=== PATIENT | female | born 1965 | race Caucasian/White ===

== ENCOUNTER 2017-10-22 07:58 | Emergency (ER) | payer OTHER ==
[2017-10-22] MEDS: ALBUTEROL 0.5% (NEB) 2.5 MG/0.5 ML AMP INH (08:33)
[2017-10-22] MEDS: IPRATROPIUM (NEB) 0.5 MG/2.5 ML AMP INH (08:33)
[2017-10-22] MEDS: HYDROCODONE/APAP (10/325) TAB PO (09:07)
[2017-10-22] MEDS: AZITHROMYCIN 250 MG TAB PO (11:29)
== END 2017-10-22 11:56 | disposition home or self-care (01) ==
LOC: E/R 07:58
DX: J20.9 Acute bronchitis, unspecified (principal); I10 Essential (primary) hypertension; E66.9 Obesity, unspecified; E11.9 Type 2 diabetes mellitus without complications; Z68.44 Body mass index [BMI] 60.0-69.9, adult; Z79.84 Long term (current) use of oral hypoglycemic drugs
CPT/HCPCS: 71045; 94644; 99284-25

== ENCOUNTER 2018-01-03 04:52 | Emergency (ER) | payer OTHER ==
[2018-01-03] MEDS: HYDROCODONE/APAP (5/325) TAB PO (05:14)
[2018-01-03] MEDS: IBUPROFEN 800 MG TAB PO (05:14)
[2018-01-03] MEDS: HYDROmorphONE 2 MG/ML SYG IV ×2 (05:40→07:01)
[2018-01-03] MEDS: HYDROmorphONE 0.5 MG/0.5 ML SYG IV ×2 (07:29→08:50)
[2018-01-03 07:54] LABS: ADD MAN DIFF? NO
[2018-01-03 07:55] LABS: BASOPHIL # 0.1 10^3/ul (0.0-0.1); BASOPHILS % 0.8 % (0.0-2.0); EOSINOPHILS # 0.2 10^3/ul (0.0-0.5); EOSINOPHILS % 1.9 % (0.0-7.0); HEMOGLOBIN 12.2 g/dl (12.0-16.0); LYMPHOCYTES # 1.1 10^3/ul (0.8-2.9); LYMPHOCYTES % 12.6 % (15.0-51.0); MEAN CORPUSCULAR HEMOGLOBIN 29.6 pg (29.0-33.0); MEAN CORPUSCULAR HGB CONC 33.9 g/dl (32.0-37.0); MEAN CORPUSCULAR VOLUME 87.4 fl (82.0-101.0); MEAN PLATELET VOLUME 8.6 fl (7.4-10.4); MONOCYTE # 0.7 10^3/ul (0.3-0.9); MONOCYTES % 8.5 % (0.0-11.0); NEUTROPHIL # 6.5 10^3/ul (1.6-7.5); NEUTROPHILS % 75.7 % (39.0-77.0); PLATELET COUNT 296 10^3/UL (140-415); RED BLOOD COUNT 4.12 10^6/ul (4.20-5.40); RED CELL DISTRIBUTION WIDTH 13.2 % (11.5-14.5)
[2018-01-03 07:55] LABS: WHITE BLOOD COUNT 8.5 10^3/ul (4.8-10.8)
[2018-01-03 08:33] LABS: ANION GAP 15 (8-16); BLOOD UREA NITROGEN 12 mg/dl (7-20); CALCIUM 9.3 mg/dl (8.4-10.2); CARBON DIOXIDE 26 mmol/L (21-31); CHLORIDE 91 mmol/L (97-110); CREATININE 0.76 mg/dl (0.44-1.00); GLUCOSE 128 mg/dl (70-220); POTASSIUM 4.7 mmol/L (3.5-5.1); SODIUM 127 mmol/L (135-144)
[2018-01-03] MEDS: HYDROCODONE/APAP (10/325) TAB PO (11:46)
== END 2018-01-03 13:35 | disposition short-term general hospital (02) ==
LOC: E/R 04:52
DX: S43.001A Unspecified subluxation of right shoulder joint, initial encounter (principal); I10 Essential (primary) hypertension; E11.9 Type 2 diabetes mellitus without complications; E03.9 Hypothyroidism, unspecified; W01.0XXA Fall on same level from slipping, tripping and stumbling without subsequent striking against object, initial encounter; Y92.009 Unspecified place in unspecified non-institutional (private) residence as the place of occurrence of the external cause; Z79.84 Long term (current) use of oral hypoglycemic drugs
CPT/HCPCS: 73030; 73030-RT; 73200; 80048; 85025; 96374; 96376; 99285-25

== ENCOUNTER 2018-07-04 13:59 | Inpatient (IN) | payer OTHER ==
[2018-07-04] MEDS: DILTIAZEM 30 MG TAB PO (14:22)
[2018-07-04] MEDS: SOD CHLORIDE 0.9% 1,000 ML IV (14:23)
[2018-07-04] MEDS: DILTIAZEM 25 MG INJ IV (14:25)
[2018-07-04 14:48] LABS: INR 0.99; PARTIAL THROMBOPLASTIN TIME 29.2 Sec (23.0-35.0); PROTIME 13.2 Sec (11.9-14.9)
[2018-07-04 15:20] LABS: AMPHETAMINE/METHAMPHETAMINE Negative (NEGATIVE); BARBITURATES Negative (NEGATIVE); BENZODIAZEPINES Negative (NEGATIVE); CANNABINOIDS Negative (NEGATIVE); COCAINE Negative (NEGATIVE)
[2018-07-04 15:21] LABS: OPIATES Positive (NEGATIVE)
[2018-07-04 15:31] LABS: FREE T4 (FREE THYROXINE) 1.64 ng/dl (0.64-1.79)
[2018-07-04 15:45] LABS: ALANINE AMINOTRANSFERASE 49 IU/L (13-69); ALBUMIN 3.9 g/dl (3.3-4.9); ALBUMIN/GLOBULIN RATIO 1.39; ALKALINE PHOSPHATASE 78 IU/L (42-121); ANION GAP 18 (5-13); ASPARTATE AMINO TRANSFERASE 133 IU/L (15-46); BILIRUBIN,INDIRECT 0.4 mg/dl (0-1.1); BILIRUBIN,TOTAL 0.4 mg/dl (0.2-1.3); BLOOD UREA NITROGEN 10 mg/dl (7-20); CARBON DIOXIDE 21 mmol/L (21-31); CHLORIDE 61 mmol/L (97-110); CREATININE 0.57 mg/dl (0.44-1.00); Estimated GFR > 60 mL/min (>60); GLUCOSE 178 mg/dl (70-220); POTASSIUM 3.4 mmol/L (3.5-5.1); TOTAL PROTEIN 6.7 g/dl (6.1-8.1)
[2018-07-04 15:47] LABS: ETHANOL < 10.0 mg/dl (0-0); MEAN PLATELET VOLUME 9.4 fl (7.4-10.4); NUCLEATED RED BLOOD CELLS% 0.1 /100WBC (0.0-0.0); PLATELET COUNT 416 10^3/UL (140-415); RED BLOOD COUNT 4.42 10^6/ul (4.20-5.40); THYROID STIMULATING HORMONE 0.844 MIU/L (0.465-4.680); TROPONIN-I < 0.012 ng/ml (0.000-0.120)
[2018-07-04 15:47] LABS: WHITE BLOOD COUNT 19.5 10^3/ul (4.8-10.8)
[2018-07-04 15:48] LABS: POSITIVE DIFF @See below
[2018-07-04 15:49] LABS: ADD MAN DIFF? YES
[2018-07-04 15:50] LABS: SODIUM 100 mmol/L (135-144)
[2018-07-04 15:58] LABS: BAND NEUTROPHILS #M 1.9 10^3/ul (0.0-0.6); BAND NEUTROPHILS % (M) 10 % (0-4); LYMPHOCYTES #M 0.3 10^3/ul (0.8-2.9); LYMPHOCYTES % (M) 2 % (15-51); MONOCYTE #M 0.5 10^3/ul (0.3-0.9); MONOCYTES % (M) 3 % (0-11); PLATELET ESTIMATE NORMAL; REACTIVE LYMPHOCYTES #M 0.3 10^3/ul (0.0-0.0); REACTIVE LYMPHOCYTES% (M) 2 % (0-0); SEG NEUT #M 16.6 10^3/ul (1.6-7.5); SEGMENTED NEUTROPHILS (M) % 83 % (39-77); SMUDGE%M 16 % (0-0)
[2018-07-04 16:06] LABS: HEMATOCRIT 34.2 % (37.0-47.0); MEAN CORPUSCULAR HEMOGLOBIN 29.4 pg (29.0-33.0); MEAN CORPUSCULAR VOLUME 77.4 fl (82.0-101.0)
[2018-07-04 16:07] LABS: RED CELL DISTRIBUTION WIDTH 12.3 % (11.5-14.5)
[2018-07-04] MEDS: MAGNESIUM SULFATE 2 GM/50 ML 50 ML IVPB (16:19)
[2018-07-04] MEDS: POTASSIUM CHLORIDE (SR) 20 MEQ TAB PO (18:32)
[2018-07-04] MEDS ORDERED: HYDROCODONE/APAP (5/325) TAB PO (19:00)
[2018-07-04] MEDS ORDERED: NACL 0.9% 3 ML SYG IV (19:00)
[2018-07-04] MEDS ORDERED: DOCUSATE SODIUM 100 MG CAP PO (19:00)
[2018-07-04] MEDS ORDERED: hydrALAzine 20 MG INJ IV (19:00)
[2018-07-04] MEDS ORDERED: NITROGLYCERIN (SL) 0.4 MG TAB SL (19:00)
[2018-07-04] MEDS ORDERED: ONDANSETRON 4 MG INJ IV (19:00)
[2018-07-04] MEDS ORDERED: MAGNESIUM HYDROXIDE 30ML CUP PO (19:00)
[2018-07-04] MEDS ORDERED: ALBUTEROL/IPRATROPIUM (NEB) 3 ML AMP HHN (19:00)
[2018-07-04] MEDS ORDERED: morphine 2 MG INJ IV (19:00)
[2018-07-04 19:27] LABS: HEMOGLOBIN A1C 6.1 % (0-5.9)
[2018-07-04 19:35] LABS: ANION GAP 18 (5-13); BLOOD UREA NITROGEN 11 mg/dl (7-20); CALCIUM 8.3 mg/dl (8.4-10.2); CARBON DIOXIDE 22 mmol/L (21-31); CHLORIDE 59 mmol/L (97-110); CREATININE 0.55 mg/dl (0.44-1.00); Estimated GFR > 60 mL/min (>60); GLUCOSE 130 mg/dl (70-220); POTASSIUM 3.3 mmol/L (3.5-5.1)
[2018-07-04 19:47] LABS: SODIUM 99 mmol/L (135-144)
[2018-07-04 20:15] LABS: URIC ACID 3.1 mg/dl (3.1-7.9)
[2018-07-04] MEDS: INSULIN ASPART [NOVOLOG] 3 ML PEN SC (20:57)
[2018-07-04] MEDS: RANITIDINE 150 MG TAB PO (21:02)
[2018-07-04 21:18] LABS: OSMOLALITY 203 mOsm/kg (280-295)
[2018-07-04] MEDS: NACL 3% 500 ML IV (21:18)
[2018-07-04 21:31] LABS: ANION GAP 19 (5-13); BLOOD UREA NITROGEN 10 mg/dl (7-20); CALCIUM 8.3 mg/dl (8.4-10.2); CARBON DIOXIDE 21 mmol/L (21-31); CHLORIDE 61 mmol/L (97-110); CREATININE 0.51 mg/dl (0.44-1.00); Estimated GFR > 60 mL/min (>60); GLUCOSE 119 mg/dl (70-220); POTASSIUM 3.3 mmol/L (3.5-5.1)
[2018-07-04 21:40] LABS: SODIUM 101 mmol/L (135-144)
[2018-07-04 22:01] LABS: TROPONIN-I < 0.012 ng/ml (0.000-0.120)
[2018-07-04 22:07] LABS: CK INDEX 2.7; CREATINE KINASE 4624 IU/L (23-200)
[2018-07-04 22:51] LABS: ANION GAP 18 (5-13); BLOOD UREA NITROGEN 10 mg/dl (7-20); CALCIUM 8.2 mg/dl (8.4-10.2); CARBON DIOXIDE 23 mmol/L (21-31); CHLORIDE 61 mmol/L (97-110); CREATININE 0.56 mg/dl (0.44-1.00); Estimated GFR > 60 mL/min (>60); GLUCOSE 107 mg/dl (70-220); POTASSIUM 3.3 mmol/L (3.5-5.1)
[2018-07-04 22:55] LABS: SODIUM 102 mmol/L (135-144)
[2018-07-04] MEDS: HYDROCODONE/APAP (5/325) TAB PO (23:23)
[2018-07-05 00:01] LABS: ADD UMIC YES; UR ASCORBIC ACID NEGATIVE (NEGATIVE); UR BILIRUBIN (Dip) NEGATIVE (NEGATIVE); UR BLOOD (Dip) 2+ mg/dL (NEGATIVE); UR CLARITY CLEAR (CLEAR); UR COLOR YELLOW (YELLOW); UR GLUCOSE (Dip) NEGATIVE (NEGATIVE); UR KETONES (Dip) 1+ mg/dL (NEGATIVE); UR LEUKOCYTE ESTERASE (Dip) NEGATIVE Leu/ul (NEGATIVE); UR NITRITE (Dip) NEGATIVE (NEGATIVE); UR RBC 1 /HPF (0-5); UR SPECIFIC GRAVITY (Dip) 1.014 (1.003-1.030); UR TOTAL PROTEIN (Dip) 3+ mg/dl (NEGATIVE); UR UROBILINOGEN (Dip) NEGATIVE (NEGATIVE); UR WBC 1 /HPF (0-5)
[2018-07-05 00:06] LABS: CREATININE,URINE RANDOM 62.27 mg/dl (20-320)
[2018-07-05 00:06] LABS: SODIUM,URINE RANDOM 29 mmol/L (30-90)
[2018-07-05] MEDS: LORAZEPAM 2 MG INJ IV ×2 (00:17→20:59)
[2018-07-05 01:18] LABS: ANION GAP 16 (5-13); BLOOD UREA NITROGEN 10 mg/dl (7-20); CALCIUM 8.2 mg/dl (8.4-10.2); CARBON DIOXIDE 25 mmol/L (21-31); CHLORIDE 60 mmol/L (97-110); CREATININE 0.56 mg/dl (0.44-1.00); Estimated GFR > 60 mL/min (>60); GLUCOSE 98 mg/dl (70-220)
[2018-07-05 01:20] LABS: SODIUM 101 mmol/L (135-144)
[2018-07-05] MEDS: INSULIN ASPART [NOVOLOG] 3 ML PEN SC ×6 (01:40→21:00)
[2018-07-05] MEDS: ACCU-CHEK XX (02:14)
[2018-07-05] MEDS: morphine 4 MG/ML VIAL IV (02:25)
[2018-07-05 02:27] LABS: OSMOLALITY,URINE 446 mOsm/kg (250-1200)
[2018-07-05] MEDS ORDERED: POTASSIUM CHLORIDE 50 ML IVPB (02:30)
[2018-07-05 03:28] LABS: ANION GAP 17 (5-13); BLOOD UREA NITROGEN 9 mg/dl (7-20); CALCIUM 8.4 mg/dl (8.4-10.2); CARBON DIOXIDE 24 mmol/L (21-31); CHLORIDE 64 mmol/L (97-110); CREATININE 0.53 mg/dl (0.44-1.00); Estimated GFR > 60 mL/min (>60); GLUCOSE 94 mg/dl (70-220)
[2018-07-05 03:32] LABS: SODIUM 105 mmol/L (135-144)
[2018-07-05 03:39] LABS: TROPONIN-I < 0.012 ng/ml (0.000-0.120)
[2018-07-05] MEDS: POTASSIUM CHLORIDE 100 ML IVPB ×4 (03:45→16:23)
[2018-07-05 03:54] LABS: CK INDEX 2.7; CREATINE KINASE 4798 IU/L (23-200)
[2018-07-05] MEDS: DILTIAZEM-D5W 125MG/125ML DRIP 125 ML IV (04:26)
[2018-07-05] MEDS: HYDROmorphONE 0.5 MG/0.5 ML SYG IV (05:25)
[2018-07-05 05:47] LABS: ADD MAN DIFF? NO
[2018-07-05 05:52] LABS: WHITE BLOOD COUNT 14.9 10^3/ul (4.8-10.8)
[2018-07-05 05:52] LABS: BASOPHILS % 0.2 % (0.0-2.0); EOSINOPHILS # 0.1 10^3/ul (0.0-0.5); EOSINOPHILS % 0.8 % (0.0-7.0); LYMPHOCYTES # 0.8 10^3/ul (0.8-2.9); LYMPHOCYTES % 5.4 % (15.0-51.0); MONOCYTE # 0.8 10^3/ul (0.3-0.9); MONOCYTES % 5.4 % (0.0-11.0); NEUTROPHILS % 87.3 % (39.0-77.0); PLATELET COUNT 386 10^3/UL (140-415); RED BLOOD COUNT 4.15 10^6/ul (4.20-5.40); RED CELL DISTRIBUTION WIDTH 12.2 % (11.5-14.5)
[2018-07-05 06:14] LABS: CHOLESTEROL 185 mg/dl (100-200)
[2018-07-05 06:14] LABS: HDL CHOLESTEROL 60 mg/dl (37-92); LDL CHOLESTEROL,CALCULATED 105 mg/dl; TRIGLYCERIDES 100 mg/dl (0-149)
[2018-07-05 06:18] LABS: ANION GAP 15 (5-13); BLOOD UREA NITROGEN 9 mg/dl (7-20); CALCIUM 8.3 mg/dl (8.4-10.2); CARBON DIOXIDE 25 mmol/L (21-31); CHLORIDE 63 mmol/L (97-110); CREATININE 0.51 mg/dl (0.44-1.00); Estimated GFR > 60 mL/min (>60); GLUCOSE 82 mg/dl (70-220); PHOSPHORUS 2.5 mg/dl (2.5-4.9); POTASSIUM 3.1 mmol/L (3.5-5.1)
[2018-07-05 06:29] LABS: SODIUM 103 mmol/L (135-144)
[2018-07-05] MEDS: LEVOTHYROXINE 50 MCG TAB PO (06:40)
[2018-07-05 06:52] LABS: HEMATOCRIT 32.2 % (37.0-47.0); HEMOGLOBIN 12.1 g/dl (12.0-16.0); MEAN CORPUSCULAR VOLUME 77.4 fl (82.0-101.0); POSITIVE DIFF @See below
[2018-07-05 06:53] LABS: MEAN CORPUSCULAR HEMOGLOBIN 29.1 pg (29.0-33.0)
[2018-07-05 06:54] LABS: MEAN CORPUSCULAR HGB CONC 37.6 g/dl (32.0-37.0)
[2018-07-05 07:07] LABS: HEMOGLOBIN A1C 6.2 % (0-5.9)
[2018-07-05 07:39] LABS: CREATINE KINASE 5167 IU/L (23-200)
[2018-07-05 08:27] LABS: ANION GAP 14 (5-13); BLOOD UREA NITROGEN 8 mg/dl (7-20); CALCIUM 8.3 mg/dl (8.4-10.2); CARBON DIOXIDE 26 mmol/L (21-31); CHLORIDE 65 mmol/L (97-110); CREATININE 0.52 mg/dl (0.44-1.00); Estimated GFR > 60 mL/min (>60); GLUCOSE 106 mg/dl (70-220)
[2018-07-05 08:39] LABS: SODIUM 105 mmol/L (135-144)
[2018-07-05] MEDS: ACETAMINOPHEN 325 MG TAB PO ×2 (08:47→14:49)
[2018-07-05] MEDS: AMLODIPINE 10 MG TAB PO (08:47)
[2018-07-05] MEDS: POTASSIUM CHLORIDE (SR) 20 MEQ TAB PO (08:48)
[2018-07-05] MEDS: MAGNESIUM SULFATE 2 GM/50 ML 50 ML IVPB (08:48)
[2018-07-05] MEDS: MENTHOL/METH SALICYLATE 30 GM OINT TOP ×4 (10:18→21:23)
[2018-07-05 10:49] LABS: ANION GAP 15 (5-13); Estimated GFR > 60 mL/min (>60)
[2018-07-05 10:53] LABS: BLOOD UREA NITROGEN 8 mg/dl (7-20); CALCIUM 8.3 mg/dl (8.4-10.2); CARBON DIOXIDE 24 mmol/L (21-31); CHLORIDE 66 mmol/L (97-110); CREATININE 0.53 mg/dl (0.44-1.00); GLUCOSE 103 mg/dl (70-220); POTASSIUM 3.2 mmol/L (3.5-5.1)
[2018-07-05 10:56] LABS: SODIUM 105 mmol/L (135-144)
[2018-07-05] MEDS: NACL 3% 500 ML IV (12:13)
[2018-07-05 12:32] LABS: ANION GAP 13 (5-13); BLOOD UREA NITROGEN 8 mg/dl (7-20); CALCIUM 8.4 mg/dl (8.4-10.2); CARBON DIOXIDE 25 mmol/L (21-31); CHLORIDE 66 mmol/L (97-110); CREATININE 0.53 mg/dl (0.44-1.00); Estimated GFR > 60 mL/min (>60); GLUCOSE 107 mg/dl (70-220); POTASSIUM 3.2 mmol/L (3.5-5.1)
[2018-07-05 12:33] LABS: SODIUM 104 mmol/L (135-144)
[2018-07-05 12:41] LABS: MAGNESIUM 0.7 mg/dl (1.7-2.5)
[2018-07-05 13:21] LABS: ADD UMIC YES; UR ASCORBIC ACID NEGATIVE (NEGATIVE); UR BACTERIA FEW /HPF (NONE SEEN); UR BILIRUBIN (Dip) NEGATIVE (NEGATIVE); UR BLOOD (Dip) 3+ mg/dL (NEGATIVE); UR CLARITY CLEAR (CLEAR); UR COLOR YELLOW (YELLOW); UR GLUCOSE (Dip) NEGATIVE (NEGATIVE); UR KETONES (Dip) 2+ mg/dL (NEGATIVE); UR LEUKOCYTE ESTERASE (Dip) NEGATIVE Leu/ul (NEGATIVE); UR NITRITE (Dip) NEGATIVE (NEGATIVE); UR RBC > 182 /HPF (0-5); UR SPECIFIC GRAVITY (Dip) 1.013 (1.003-1.030); UR TOTAL PROTEIN (Dip) 2+ mg/dl (NEGATIVE); UR UROBILINOGEN (Dip) 1+ mg/dL (NEGATIVE); UR WBC 7 /HPF (0-5)
[2018-07-05 13:34] LABS: SODIUM,URINE RANDOM 62 mmol/L (30-90)
[2018-07-05 13:59] LABS: OSMOLALITY,URINE 387 mOsm/kg (250-1200)
[2018-07-05 14:49] LABS: ANION GAP 14 (5-13); BLOOD UREA NITROGEN 8 mg/dl (7-20); CALCIUM 8.5 mg/dl (8.4-10.2); CARBON DIOXIDE 25 mmol/L (21-31); CHLORIDE 67 mmol/L (97-110); CREATININE 0.54 mg/dl (0.44-1.00); Estimated GFR > 60 mL/min (>60); GLUCOSE 102 mg/dl (70-220); POTASSIUM 3.3 mmol/L (3.5-5.1)
[2018-07-05 14:54] LABS: SODIUM 106 mmol/L (135-144)
[2018-07-05 17:19] LABS: ANION GAP 16 (5-13); BLOOD UREA NITROGEN 8 mg/dl (7-20); CALCIUM 8.4 mg/dl (8.4-10.2); CARBON DIOXIDE 23 mmol/L (21-31); CHLORIDE 70 mmol/L (97-110); CREATININE 0.48 mg/dl (0.44-1.00); Estimated GFR > 60 mL/min (>60); GLUCOSE 106 mg/dl (70-220); POTASSIUM 3.5 mmol/L (3.5-5.1)
[2018-07-05 17:22] LABS: SODIUM 109 mmol/L (135-144)
[2018-07-05 20:18] LABS: ANION GAP 17 (5-13); BLOOD UREA NITROGEN 7 mg/dl (7-20); CALCIUM 8.4 mg/dl (8.4-10.2); CARBON DIOXIDE 22 mmol/L (21-31); CHLORIDE 71 mmol/L (97-110); CREATININE 0.45 mg/dl (0.44-1.00); Estimated GFR > 60 mL/min (>60); GLUCOSE 124 mg/dl (70-220); POTASSIUM 3.5 mmol/L (3.5-5.1)
[2018-07-05 20:23] LABS: SODIUM 110 mmol/L (135-144)
[2018-07-05] MEDS: HYDROCODONE/APAP (5/325) TAB PO (20:59)
[2018-07-05] MEDS: RANITIDINE 150 MG TAB PO (21:23)
[2018-07-05 23:05] LABS: ANION GAP 15 (5-13); BLOOD UREA NITROGEN 7 mg/dl (7-20); CALCIUM 8.4 mg/dl (8.4-10.2); CARBON DIOXIDE 22 mmol/L (21-31); CHLORIDE 72 mmol/L (97-110); CREATININE 0.48 mg/dl (0.44-1.00); Estimated GFR > 60 mL/min (>60); GLUCOSE 126 mg/dl (70-220); POTASSIUM 3.4 mmol/L (3.5-5.1)
[2018-07-05 23:34] LABS: SODIUM 109 mmol/L (135-144)
[2018-07-08 13:05] LABS: CHLORIDE, RANDOM URINE 54 mmol/L (32-290)
[2018-07-08 17:01] LABS: CREATININE, RANDOM URINE 68 mg/dL (20-275); MICROALBUMIN 177.7 mg/dL; MICROALBUMIN/CREATININE RATIO 2613 (<30)
== END 2018-07-06 00:05 | disposition short-term general hospital (02) | DRG 641 ==
LOC: E/R 13:59 → ICU 16:10
DX: E87.1 Hypo-osmolality and hyponatremia (principal); Z68.43 Body mass index [BMI] 50.0-59.9, adult; E66.01 Morbid (severe) obesity due to excess calories; E83.42 Hypomagnesemia; I48.0 Paroxysmal atrial fibrillation; E11.9 Type 2 diabetes mellitus without complications; E03.9 Hypothyroidism, unspecified; I10 Essential (primary) hypertension; F41.9 Anxiety disorder, unspecified; E87.6 Hypokalemia; G89.4 Chronic pain syndrome; Z79.84 Long term (current) use of oral hypoglycemic drugs; Z87.891 Personal history of nicotine dependence
CPT/HCPCS: 36415; 70450; 71045; 80048; 80053; 80061; 80307; 81001; 81003; 82043; 82436; 82550; 82553; 82962; 83036; 83735; 83930; 83935; 84100; 84155; 84300; 84439; 84443; 84484; 84560; 85025; 85610; 85730; 87081; 93005; 96374; 97161; 99291-25